=== PATIENT | male | born 1950 | race Caucasian/White ===

== ENCOUNTER → 2024-05-27 11:13 | Outpatient (REF) | payer MEDICARE, OTHER, SELFPAY | LOC: HWRCS 11:13 | PROVIDERS: ATTENDING PHYSICIAN Internal Medicine Cardiovascular Disease; FAMILY PHYSICIAN Family Medicine | DX: I42.1 Obstructive hypertrophic cardiomyopathy (principal) | CPT/HCPCS: 93306 ==

== ENCOUNTER 2025-08-07 13:56 | Emergency (ER) | payer MEDICARE, OTHER, SELFPAY ==
[2025-08-07 14:05] VITALS: BP 135/116
[2025-08-07 14:24] VITALS: BP 131/86
--- NOTE | 2025-08-07 14:44 | ED.GENMED ---
History of Present Illness
General
Chief Complaint: Heart Rate Problem
Source: patient and family
Time Seen by Provider: 08/07/25 14:24
History of Present Illness
History of Present Illness:
This patient is a 75-year-old male was feeling perfectly well earlier today. Approximately 1230 this afternoon, he was sitting down at the computer and started to feel like his heart was racing associated with feeling like it was harder to breathe
and a feeling of 'woozy' dizziness described as lightheadedness might pass out. He called to his who came to him and noted that he looked pale and diaphoretic. At that time, he denied chest pain or pressure, jaw pain, neck pain he had a very
mild headache. He denies numbness or tingling, abdominal pain, nausea, vomiting. He did not at that time had the sensation that he needed to have a bowel movement. Medics were called, and upon their arrival patient was still having symptoms. He
went to the bathroom and had a normal bowel movement. Then, medics took an EKG and told him it was unremarkable and they decided not to come to the emergency department. Patient remains in asymptomatic but upon further consideration was brought to
the ER by his family.
Past History
Past History
ED Past Medical History: Other (Hypertrophic obstructive cardiomyopathy, hypercholesterolemia, hypertension, peripheral arterial disease)
ED Past Surgical History: Orthopedic
Social History
Tobacco: Former smoker
Drug: None
Personal:
Living: with family
Phy Exam
Physical Exam
Physical Exam:
GENERAL: Alert , in no apparent distress
EYE: pupils equal and reactive
NECK: Supple, no significant adenopathy.
ENT: o/p clr, mmm.
CARDIAC: Regular rate and rhythm .
LUNGS: Clear breath sounds bilaterally, no acute respiratory distress, no wheezes/rales/rhonchi
ABDOMEN: Soft, without focal tenderness, no r/g, no cvat
NEUROLOGICAL: Alert and oriented, no focal neuro deficits
SKIN: Warm and dry, skin intact.
MUSCULOSKELETAL: No edema, well perfused.
PSYCH: Normal and appropriate interaction.
Course
Orders/Labs/Results
Orders:
Orders
08/07/25 13:57
Electrocardiogram (*1) Urgent
Reason for Study: Palpitations
08/07/25 13:58
EKG- Treatment ONCE
08/07/25 14:24
Cardiac Monitoring- Treatment ONCE
CR Chest - 2 Views Urgent
Comment:
Reason For Exam: dizzy
Pulse Ox/cont/shift [RESP] Stat
Quantity: 1
08/07/25 14:58
Complete Blood Count/No Diff Urgent
Comprehensive Metabolic Panel Urgent
D-Dimer Urgent
NT-proBNP Urgent
Troponin I Urgent
Abnormal Lab Results
08/07/25
14:58
RBC 4.47 L 10^6/uL
(4.70-6.10)
BUN 21 H mg/dl
(9-20)
Calcium 10.3 H mg/dl
(8.4-10.2)
08/07/25 14:58
08/07/25 14:58
Vital Signs
Initial and Last Documented VS:
Initial Vital Signs
Temp Pulse Resp BP Pulse Ox
97.9 F 90 17 135/116 98
08/07/25 14:05 08/07/25 14:05 08/07/25 14:05 08/07/25 14:05 08/07/25 14:05
Last Documented Vital Signs
Temp Pulse Resp BP Pulse Ox
97.9 F 76 18 109/66 95
08/07/25 14:05 08/07/25 16:00 08/07/25 16:00 08/07/25 16:00 08/07/25 16:00
*Pulse Oximetry
SaO2: 98
Oxygen Mode of Delivery: Room air
Patient hypoxic: no
*Critical Care Note
Total Time (30-74mins, 75-104mins- exclusive of procedures): Not Applicable
Update Note
Update Note:
Patient presents to the Emergency Department with ___near syncope with dyspnea and elevated heart rate
Number and Complexity of Problems Addressed at the Encounter
� Chronic conditions affecting care:
� Acute Exacerbation and/or Progression of Chronic Illness:
� Differential Diagnosis includes: But not limited to ACS, PE, vasovagal event, electrolyte disorder, arrhythmia, etc. etc.
Amount and/or Complexity of Data to be Reviewed and Analyzed
� I performed an independent evaluation of and my interpretation is:
EKG: Read by me, normal sinus rhythm, PVC, nonspecific ST abnormalities noted.
CT:
Xrays:No acute cardiopulmonary process.
Prominent right hilum, possibly secondary to pulmonary hypertension. Hilar lymphadenopathy or mass are not completely excluded. No prior imaging of the chest for comparison. Follow-up CT as clinically indicated.
Laboratory Studies: Generally unremarkable, nonspecific troponin at 0.029 no prior for comparison, BNP elevated.
Other:
� Review of other/old records reveals: Patient had a cath in 2014 that showed minimal disease.
� Clinical information was obtained by an independent historian: and son who are bedside as well as old records
� Prescriptions/Medications Considered but not given:
� Further testing considered but not performed:
Risk of Complications and/or Morbidity or Mortality of Patient Management
� Social determinants of health affecting care:
� Discussion with other providers (PCP, Hospitalists, Consultants, etc):
� Escalation of care including admission/observation vs risk of discharge considered: 4:47 PM patient remains completely asymptomatic here since arrival, vital stable, no chest pain. Long discussion with Dr. Mando Boo and I
sent him EKG from both today and the most recent that we have on file here. He event marketing intern reviewed prior ECGs from the office, strongly feels that history physical EKG etc. all consistent with vasovagal event. Of note, patient did not have any chest
pain or pressure. I agree that history very suggestive of this, and his recommendation is for discharge without repeating troponin or other testing. I did note questionable abnormality on chest x-ray that requires outpatient follow-up. Patient
and given copy of x-ray and close instructions regarding importance of follow-up with both cardiology and PCP.
ED Attending Note
-
Portions of this chart may have been created with voice recognition software.� Occasional wrong word or��sound alike� substitutions may have occurred due to the inherent limitations of voice recognition software.
Discharge Plan
Departure
Patient Disposition: Home (Routine Discharge)
Date of Disposition: 08/07/25
Time of Disposition: 16:42
Patient with high blood pressure during this ER visit?: Yes
Condition: Good
Discharge Problem:
Vasovagal near syncope
Instructions: Dizziness in adults - ED (DC), BLOOD PRESSURE
Prescriptions:
No Action
atorvastatin 40 MG tablet
40 mg PO QPM
coenzyme Q10 [Co Q-10] 10 MG capsule
10 mg PO DAILY
aspirin 81 MG tablet,delayed release (DR/EC)
81 mg PO DAILY
propranolol 80 MG capsule,extended release 24 hr
80 mg PO BID
zaleplon [Sonata] 5 MG capsule
5 mg PO HS
escitalopram oxalate 10 MG tablet
10 mg PO DAILY
bupropion HCl [Wellbutrin XL] 150 MG tablet extended release 24 hr
150 mg PO DAILY
alfuzosin [Uroxatral] 10 MG tablet extended release 24 hr
10 mg PO DAILY
Referrals:
Rosalina Rothman MD [Family Provider, Family Practice] - Follow up in 1 week
Tien Chamorro MD [Active, Cardiology] - Tomorrow
Activity Restrictions/Additional Instructions:
PLEASE SPEAK TO YOUR CONCRETE FINISHING MACHINE OPERATOR TOMORROW REGARDING YOUR SYMPTOMS TODAY. PLEASE CONTACT YOUR FAMILY DOCTOR FOR FOLLOW-UP REGARDING YOUR CHEST X-RAY WHICH WE HAVE GIVEN YOU A COPY OF. IF YOU DEVELOP CHEST PAIN OR PRESSURE, SHORTNESS OF BREATH,
HEADACHE, DIZZINESS, NUMBNESS, WEAKNESS, OR OTHER COMPLAINTS, PLEASE RETURN TO THE ER IMMEDIATELY EXCLAMATION
Interventions
Interventions:
*General Assessment Last Done: 08/07/25 14:11
*Neglect/Abuse Screening Last Done: 08/07/25 14:11
*ED COVID-19 Vaccine History Last Done: 08/07/25 14:11
*ED Influenza Vaccine History Last Done: 08/07/25 14:11
[facility] Risk Assessment Tool Last Done: 08/07/25 16:43
*Risk Screen - Suicide (C-SSRS) Last Done: 08/07/25 14:11
ED- Cardiac Assessment Last Done: 08/07/25 16:43
ED- Pulmonary Assessment Last Done: 08/07/25 16:43
Discharge Date and Time
Print Language: SLOVENIAN
[2025-08-07 15:14] LABS: Hematocrit 39.5 % (39.0-52.0); Hemoglobin 13.3 g/dL (13.0-18.0); Mean Corp Hgb Conc. 33.7 g/dL (33.0-37.0); Mean Corpuscular Volume 88.4 fL (80.0-94.0); Platelet Count 151 10^3/uL (130-400); Red Cell Dist. Width 12.6 % (11.5-14.5)
[2025-08-07 15:32] LABS: D-Dimer 0.42 ug/mlFEU (0.00-0.50)
[2025-08-07 15:36] LABS: ALT (SGPT) 21 U/L (0-50); AST (SGOT) 25 U/L (17-59); Albumin 4.3 g/dl (3.5-5.0); Alkaline Phosphatase 53 U/L (38-126); Blood Urea Nitrogen 21 mg/dl (9-20); Calcium 10.3 mg/dl (8.4-10.2); Carbon Dioxide 28 mmol/L (22-30); Chloride 102 mmol/L (98-107); Glucose 90 mg/dl (70-99); Potassium 4.4 mmol/L (3.5-5.1); Sodium 136 mmol/L (135-145); Total Protein 7.0 g/dl (6.3-8.2); eGFR > 60.00
[2025-08-07 15:47] LABS: Troponin I 0.029 ng/ml
[2025-08-07 16:00] VITALS: BP 109/66
== END 2025-08-07 17:02 | disposition home or self-care (01) ==
LOC: EMR 13:56
PROVIDERS: EMERGENCY PHYSICIAN Emergency Medicine; FAMILY PHYSICIAN Family Medicine
DX: R55 Syncope and collapse (principal); E78.00 Pure hypercholesterolemia, unspecified; I10 Essential (primary) hypertension; I42.1 Obstructive hypertrophic cardiomyopathy; Z87.891 Personal history of nicotine dependence
CPT/HCPCS: 99285; 71046; 80053; 83880; 84484; 85027; 85379; 93005